=== PATIENT | female | born 1955 | race Caucasian/White ===

== ENCOUNTER 2019-01-24 08:00 | Outpatient (RCR) | payer OTHER, SELFPAY ==
--- NOTE | 2018-12-03 15:50 | HP.PTEVAL_ITS ---
Patient's Visit Information JUNIOR GRIER is a 63 year old F referred to Physical Therapy by JUAN J HOLDER with a diagnosis of L hip OA, s/p THA11/12. Date of Evaluation: 12/03/18 Physical Therapist: Deejay Salvador, DPT, OCS, CSCS - Visit Plan Frequency: 3x /Week Duration: 4-6 Weeks Plan: 3x/week for 3-6 weeks... 1. Ensure L hip ROM P/AROM emphasize extensiona nd abd. 2. rollout quads and hip flexors adn HS and stretch. 3. Strengthen L hip progression. gait training to cane and then no AD>. 4. General ex via HEP at end. 4. Ice as needed. - Subjective Findings: 11/12/18 had hip replacement L and willhave r one done in 3 months. Surgery was anterior approach. This is the best lainey wlaked in 3 years. Overall pain level 1/10 lately. Yesterday it hurt 4/10. Pain is laterally when present. Comfortable at rest. Sleeps not well but did last night as she took pain pill.Using wh walker most of time but has cane shich she has recently started. WBAT L. 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 Now will twiddle thumbs, hobbies include working on crossword puzzles and jiogsaw puzzles. Exercise none when healthy. HEP for hip none. Basic ADLs are getting done with chair in tub and extended toilet seat. Steps at home in garage without railing and did it today. USed walker for a year and a half. - Pain L hip pain Pain Intensity (Out of 10): 0 Pain Intensity Range: 0, 4 - Objective Gait is slow with wh walker adn very little extension in either hip at end stance. Trasnfers require UE form chair and supine. Without AD is able to walk but has B trenelenberg and slow, SBA. Incision is dry and healing well, mild scar tissue palpable at anterior incision, no signs of excessive redness , heat or swelling. Hip ROM is AROM: abd 5 L and 12 R, ext 0 B and uncomfortable stretching and teorio L. flexion is 90 L and 100 R. Knees are 0-115 B, ankles WFL. strength R hip flexion 4 adn L 3+, abd 3+ l and 4 R, ext 3 B , knees ext 3+ L and 4 R, flexion 4- B. ankles are 4+ B. Sensation EL WNL to gross light touch. reflexes 2/3 in patella and achilles. Hunched over with ambulation - Goals Goal 1:: Sleep without waking due to pain Goal Time Frame: 2-4 Weeks Goal 2:: Walk community without AD I Goal Time Frame: 2-4 Weeks Goal 3:: Steps reciprocal without rail Goal Time Frame: 4-6 Weeks Goal 4:: Pt I in appropriate HEP for general ex Goal Time Frame: 4-6 Weeks - Rehabilitation Potential Physical Therapy Diagnosis: s/p L GEE Rehabilitation Potential: Good - Anticipated Interventions Patient/Client Instruction: Educate patient on: Condition, Plan of Care For the Purpose of:: To decrease pain, To increase ROM, To improve muscle performance and motor function, To increase tolerance to activity/condition/position, To improve ability of physical actions for home/community/work/leisure Therapeutic Exercise to Include: Strength training, Flexibilty training, Gait and locomotor training, Passive ROM, Active ROM For the Purpose of:: To decrease pain, To improve nutrient delivery to tissue, To improve muscle performance and motor function, To improve ability of physical actions for home/community/work/leisure Manual Therapy Techniques to Include: Passive ROM, Soft tissue mobilization For the Purpose of:: To decrease pain, To increase ROM Cryotherapy (ice pack, ice massage): Yes Thermo therapy (hot pack): Yes For the Purpose of:: To decrease pain Thank you for the opportunity to evaluate your patient. For Medicare and Medicare HMO plans, please review the plan of care and approve it. It will need to be FAXED BACK to us at [phone] for Medicare purposes. For Medicare only, by signing this I certify the plan of care. Please let me know if there are questions or concerns regarding this plan of care. Physician Signature: Date:
--- NOTE | 2018-12-27 13:01 | HP.PTREVAL ---
JUAN J HOLDER, It has been my pleasure to treat JUNIOR GRIER over the last 10 visits for L hip OA, s/p THA3/19. Please see the progress note below for an update on the physical therapy plan of care! Subjective: Started preop process for R hip. L hip 1/10 pain at most. Doing well. Cane much of time. Reverts to walker if pain increases or tired. Sleep is hard as neither leg will relax. Sleeps 2 hours and then wakes up. Steps at home B with cane. Doing dishes but man doing everything else. Dresses self. Did laundry adn made bed today. Objective/Function: Walks with R trendelenberg, slow with wide JARRETT. R antalgia. FGA tolerable today and below normal on score. Steps prefer L but can do either with rail. Admittedly noncompliant with HEP. AROM L hip to 40 degrees flexion and passively to 100, abd to 24. Strength L hip 4- abd and ext adn 4 flexion and 4+ adduction. Plan Plan: 3x/week for 3-4 weeks to strengthen adn improve gait leading up to other hip surgery. Focus on gait with narrow JARRETT and speed. Goals Goal 1:: Sleep without waking due to pain Goal Time Frame: 2-4 Weeks Goal Progress: Progressing Goal 2:: Walk community without AD I Goal Time Frame: 2-4 Weeks Goal Progress: Progressing Goal 3:: Steps reciprocal without rail Goal Time Frame: 4-6 Weeks Goal 4:: Pt I in appropriate HEP for general ex Goal Time Frame: 4-6 Weeks Goal Progress: Non compliant. Anticipated Interventions Patient/Client Instruction: Educate patient on: Condition, Plan of Care For the Purpose of:: To decrease pain, To increase ROM, To improve muscle performance and motor function, To increase tolerance to activity/condition/position, To improve ability of physical actions for home/community/work/leisure Therapeutic Exercise to Include: Strength training, Flexibilty training, Gait and locomotor training, Passive ROM, Active ROM For the Purpose of:: To decrease pain, To improve nutrient delivery to tissue, To improve muscle performance and motor function, To improve ability of physical actions for home/community/work/leisure Manual Therapy Techniques to Include: Passive ROM, Soft tissue mobilization For the Purpose of:: To decrease pain, To increase ROM Cryotherapy (ice pack, ice massage): Yes Thermo therapy (hot pack): Yes For the Purpose of:: To decrease pain Please do not hesitate to contact me at [phone] by phone or if you have questions or concerns regarding this new plan of care! Sincerely, Deejay Salvador, DPT, OCS, CSCS
--- NOTE | 2019-01-03 10:00 | HP.PTREVAL_ITS ---
JUAN J HOLDER, It has been my pleasure to treat JUNIOR GRIER over the last 13 visits for L hip OA, s/p THA/. Please see the progress note below for an update on the physical therapy plan of care! Subjective: Going the right way. Pain in R is 3/10 , L hip is not painful. R one next month replacing. Getting around better, using cane out and about and walker at home. Activities are pretty normal. Doing more house hold chores, does laundry without a problem. Walks steps but not confident. Kniws the right hip is the big problem now. Wants more therapy to work on strength in prep for next months surgery. Needs more confidence with vaccuming at home. Basic ADLs are OK. Objective/Function: R hip limiting more than L with gait. R antalgia and slight trendelenberg. avoids L hip extension due to decreased stance time on L. Steps can do either but R is painful, needs railing B. Walks better with cane, hes itant withotu AD adn slower. FGA low for age but poor confidence in R hip. L hip extension limited to neutral and flexion to 100 degrees. strength L hip 4/5 abd and ext adn flexion, R hip weaker due to pain. Plan Plan: Like to cotalfanue 3x/week for 4 weeks to work on L hip extension, giat and strength as I think she will recover quicker after R GEE if she is stronger. Progress to gym machines, gait and L anterior hip stretching. Call after approval received. Goals approp and fair prognosis Goals Goal 1:: Sleep without waking due to pain Goal Time Frame: 2-4 Weeks Goal Progress: R hip keeps up Goal 2:: Walk community without AD I Goal Time Frame: 2-4 Weeks Goal Progress: cane, improving, approp Goal 3:: Steps reciprocal without rail Goal Time Frame: 4-6 Weeks Goal Progress: needs rail, approp with L Goal 4:: Pt I in appropriate HEP for general ex Goal Time Frame: 4-6 Weeks Goal Progress: sink exercises. Goal 5:: FGA to limit fall risk. Goal Time Frame: 2-4 Weeks Goal Progress: NEW GOAL Anticipated Interventions Patient/Client Instruction: Educate patient on: Condition, Plan of Care For the Purpose of:: To decrease pain, To increase ROM, To improve muscle performance and motor function, To increase tolerance to activity/condition/position, To improve ability of physical actions for home/community/work/leisure Therapeutic Exercise to Include: Strength training, Flexibilty training, Gait and locomotor training, Passive ROM, Active ROM For the Purpose of:: To decrease pain, To improve nutrient delivery to tissue, To improve muscle performance and motor function, To improve ability of physical actions for home/community/work/leisure Manual Therapy Techniques to Include: Passive ROM, Soft tissue mobilization For the Purpose of:: To decrease pain, To increase ROM Cryotherapy (ice pack, ice massage): Yes Thermo therapy (hot pack): Yes For the Purpose of:: To decrease pain Please do not hesitate to contact me at [phone] by phone or if you have questions or concerns regarding this new plan of care! Sincerely, Deejay Salvador, DPT, OCS, CSCS
--- NOTE | 2019-01-24 08:34 | HP.PTDCSUM ---
HP - PT D/C Summary It has been my pleasure to treat JUNIOR GRIER under orders from JUAN J HOLDER, for the diagnosis of L hip OA, s/p THA11/12 for a total of 19 visit(s). Discharge Date: 01/24/19 Please see the following information for a summary of their discharge status. - Subjective Subjective: Stiff first thing in am. R hip 2/10. L hip not hurting. L hip can sometimes hurt at night to 4/10. Both hips hurt at night. Sleeps an hour at a time. Activities at home are normal with L hip but activities very limited with R hip pain. Cannot pick things up off floor due to R hip. Uses walker to reach to floor. Using cane all the time due to R hip pain. - Pain L hip pain Pain Intensity (Out of 10): 0 Right Hip Pain Intensity (Out of 10): 2 - Overall Improvement % Improvement: 80 - Objective Objective/Function: Ambulates with cane mod I. R antalgia. Without cane is safe but worse R antalgia and R trendelenberg. steps are with L only with rail and cane. L hip ROM 45 ext rotation 10 ext, 100 flexion and 15 IR. R very limited at 5 IR, 30 ext rotation, 80 flexion and -5 extension(pain). Strength L hip 4-/5 abd and ext and 4/5 flexiona dn knee ext/flex. L hip doing well, R hip is holding her back. She sees doctor today and is hoping to scheudle R hip GEE. - Goals Goal 1:: Sleep without waking due to pain Goal Progress: Not Progressing Goal 2:: Walk community without AD I Goal Progress: R hip limiting Goal 3:: Steps reciprocal without rail Goal Progress: needs rail, R hip Goal 4:: Pt I in appropriate HEP for general ex Goal Progress: Goal Met Goal 5:: FGA to limit fall risk. Goal Progress: Progressing - Plan Plan: D/C - D/C Information Discharge Comments: Pt doing well with L hip. R hip is limiting factor with poor ROM and very painful. Will see surgeon today for f/u. If there are questions or concerns regarding this patient's physical therapy, please feel free to call me at [phone]. Thank you for the referral of this patient. Sincerely, Deejay Salvador, DPT, OCS, CSCS
== END 2019-01-24 19:00 | disposition home or self-care (01) ==
LOC: PT 08:00
DX: M16.0 Bilateral primary osteoarthritis of hip (principal); Z96.642 Presence of left artificial hip joint
CPT/HCPCS: 97110; 97140; 97162; 97530

== ENCOUNTER 2020-12-14 07:49 | Day surgery (SDC) | payer OTHER, SELFPAY ==
[2020-11-29 13:18] VITALS: BMI 44.4
[2020-12-14] VITALS (7 sets, daily range): BP systolic 124–137; BP diastolic 64–76; PULSE 58–69; RESP 18; TEMP 36.2–36.3; O2SAT 95–98; BMI 43.7
--- NOTE | 2020-12-14 07:11 | HP_ITS ---
Intake Vital Signs 11/29/20 Height 5 ft 1 in 11/29/20 Weight: 235 lb 11/29/20 BMI 44.4 11/29/20 BP 140/76 H 11/29/20 Blood Pressure Location Lt brachial 11/29/20 Position Sitting 11/29/20 Respiration 18 Intake Visit Reasons: CSCOPE Chief Complaint: c-scope Data Integration Developer Required: No Is patient in pain?: No Allergies codeine Allergy (Mild, Verified 11/29/20 13:23) PT UNSURE OF REACTION doxycycline Allergy (Mild, Verified 11/29/20 13:23) PT UNSURE OF REACTION etodolac Allergy (Mild, Verified 11/29/20 13:23) PT UNSURE OF REACTION fluvastatin Allergy (Mild, Verified 11/29/20 13:23) PT UNSURE OF REACTION niacin Allergy (Mild, Verified 11/29/20 13:23) PT UNSURE OF REACTION pollen extracts Allergy (Mild, Verified 11/29/20 13:23) PT UNSURE OF REACTION pravastatin Allergy (Mild, Verified 11/29/20 13:23) PT UNSURE OF REACTION ragweed pollen Allergy (Mild, Verified 11/29/20 13:23) PT UNSURE OF REACTION rosuvastatin Allergy (Mild, Verified 11/29/20 13:23) PT UNSURE OF REACTION Sulfa (Sulfonamide Antibiotics) Allergy (Mild, Verified 11/29/20 13:23) PT UNSURE OF REACTION wool Allergy (Mild, Verified 11/29/20 13:23) PT UNSURE OF REACTION Medications acetaminophen 325 mg capsule 325 mg PO ONCE PRN 11/29/20 [History Confirmed 11/29/20] atenolol 25 mg tablet 25 mg PO DAILY 11/29/20 [History Confirmed 11/29/20] calcium carbonate 300 mg (750 mg) chewable tablet 300 mg PO BID 11/29/20 [History Confirmed 11/29/20] cetirizine 10 mg capsule 10 mg PO DAILY PRN 11/29/20 [History Confirmed 11/29/20] ezetimibe 10 mg tablet 10 mg PO DAILY 11/29/20 [History Confirmed 11/29/20] fluticasone propionate 50 mcg/actuation nasal spray,suspension 1 spray INTRANASAL DAILY 11/29/20 [History Confirmed 11/29/20] levothyroxine 50 mcg capsule 50 mcg PO DAILY 11/29/20 [History Confirmed 11/29/20] multivitamin 1 tablet PO DAILY 11/29/20 [History Confirmed 11/29/20] turmeric root extract 500 mg capsule 500 mg PO DAILY 11/29/20 [History Confirmed 11/29/20] [facility] Medical History (Updated 11/29/20 @ 14:[address] David Hillman MD) Environmental allergies (Acute) High cholesterol (Acute) Hypothyroid (Acute) HTN (hypertension) (Chronic) Surgical History (Updated 11/29/20 @ 13:17 by Daylin Liu) History of carpal tunnel surgery of left wrist (Acute) S/P bilateral hip replacements (Acute) S/P hysterectomy (Acute) Family History (Updated 11/29/20 @ 13:17 by Daylin Liu) Father Cancer lung Social History (Updated 11/29/20 @ 14:[address] David Hillman MD) Smoking Status: Never smoker alcohol intake: former HPI HPI HPI: JUNIOR GRIER, is a 65 F who presents to the office today for HPI HPI Surgical H&P: Yes HPI: JUNIOR GRIER, is a 65 F who presents to the office today for colonoscopy. The patient does not have any blood in her stool or abdominal pain. Her last colonoscopy was in 2004. She did not have any polyps. She has no family history of colon cancer. ROS General General: No weight change or fatigue Cardio Cardiovascular: No murmur, pacemaker, heart disease, atrial fibrillation, high blood pressure, heart attack, heart stent, palpitations, shortness of breat with exertion or chest pain Psych Psychiatric: No depression or anxiety Resp Respiratory: No shortness of breath, No sleep apnea, No cough, No COPD, No asthma, No emphysema, No wheezing Gastro Gastrointestinal: No abdominal pain, No nausea or vomiting, No diarrhea, No constipation, No blood in stool, No acid reflux, No hemorrhoids, No ulcers, No gallbladder problem, No black,tarry stools Yordy Hematologic: No blood thinners Exam Const General: cooperative Orientation: alert, oriented x3 Resp Effort & Inspection: normal respiratory effort Auscultation: clear to auscultation bilaterally Cardio Rate: regular rate Rhythm: regular rhythm Heart Sounds: no murmurs GI Inspection: non-distended Palpation: soft, nontender Assessment & Plan Problems 1. Encounter for screening for malignant neoplasm of colon Z12.11 Plan The patient is overdue for screening colonoscopy. I recommend her having one. I explained endoscopy in detail to the patient. I explained the risks including but not limited to stroke or heart attack with anesthesia, perforation of the GI tract, bleeding, infection. I explained that any of these could necessitate further emergency surgery. The patient understands and all questions were answered sufficiently. The patient wishes to proceed with procedure. David Hillman MD Pager: [facility] [address] [place] [address] [address] [place] [address] Office: Orders Orders: Colonoscopy Today Z12.11 Coding Level of Care Code No Charge Diagnoses Encounter for screening for malignant neoplasm of colon Z12.11 I have re-examined the patient. There are no clinical changes since date of exam.
[2020-12-14] MEDS: Lactated Ringers 1,000 ML 100 ML IV (08:46)
--- NOTE | 2020-12-14 09:33 | OP.CCLET_ITS ---
12/14/2020 [facility] Re : Colonoscopy procedure for Josselyn Pastor [facility] This procedure was performed on Monday, December 14, 2020. My impressions and recommendations are as follows: Impressions : - The entire examined colon is normal on direct and retroflexion views. - No specimens collected. Recommendations : - Discharge patient to home. - Resume previous diet. - Continue present medications. - Repeat colonoscopy in 10 years for screening purposes. My findings are described in the full procedure note, which is enclosed. If I can be of further assistance, please feel free to contact me at Doctor phone number(s): , Work: . Sincerely, David Hillman MD 12/14/2020 9:33:06 AM This report has been signed electronically.
--- NOTE | 2020-12-14 09:33 | OP.COLON_ITS ---
Patient Name: Josselyn Pastor Procedure Date: 12/14/2020 9:05 AM Date of : 1955 Age: 65 Procedure: Colonoscopy Indications: Screening for colorectal malignant neoplasm Providers: David Hillman MD Referring MD: David Hillman MD Medicines: Monitored Anesthesia Care Patient Profile: This is a 65 year old female. Refer to note in patient chart for documentation of history and physical. Last Colonoscopy: more than 10 years ago. Complications: No immediate complications. Procedure: Pre-Anesthesia Assessment: - Prior to the procedure, a History and Physical was performed, and patient medications and allergies were reviewed. The patient's tolerance of previous anesthesia was also reviewed. The risks and benefits of the procedure and the sedation options and risks were discussed with the patient. All questions were answered, and informed consent was obtained. Prior Anticoagulants: The patient has taken no previous anticoagulant or antiplatelet agents. After reviewing the risks and benefits, the patient was deemed in satisfactory condition to undergo the procedure. After I obtained informed consent, the scope was passed under direct vision. Throughout the procedure, the patient's blood pressure, pulse, and oxygen saturations were monitored continuously. The adult colonoscope was introduced through the anus and advanced to the cecum, identified by appendiceal orifice and ileocecal valve. The colonoscopy was performed without difficulty. The patient tolerated the procedure well. The quality of the bowel preparation was good. Scope In: Scope Withdrawal Time 0 hours 6 minutes 13 seconds Scope Out: 9:29:00 AM Findings: The entire examined colon appeared normal on direct and retroflexion views. Impression: - The entire examined colon is normal on direct and retroflexion views. - No specimens collected. Recommendation: - Discharge patient to home. - Resume previous diet. - Continue present medications. - Repeat colonoscopy in 10 years for screening purposes. Procedure Code(s): --- Professional --- 77580, Colonoscopy, flexible; diagnostic, including collection of specimen(s) by brushing or washing, when performed (separate procedure) Diagnosis Code(s): --- Professional --- Z12.11, Encounter for screening for malignant neoplasm of colon CPT copyright 2017 [employer]. All rights reserved. The codes documented in this report are preliminary and upon orthopedic coder review may be revised to meet current compliance requirements. David Hillman MD 12/14/2020 9:33:06 AM This report has been signed electronically. Number of Addenda: 0 Note Initiated On: 12/14/2020 9:05 AM
== END 2020-12-14 10:18 | disposition home or self-care (01) ==
LOC: EN 07:50 → AC 07:50
PROVIDERS: Referring Provider Surgery; Visit Provider Surgery
PROC: 0DJD8ZZ Inspection of Lower Intestinal Tract, Via Natural or Artificial Opening Endoscopic (ICD-10-PCS; CPT 45378; principal; 2020-12-14 08:55)
DX: Z12.11 Encounter for screening for malignant neoplasm of colon (principal); I10 Essential (primary) hypertension; E78.00 Pure hypercholesterolemia, unspecified; E03.9 Hypothyroidism, unspecified; J30.2 Other seasonal allergic rhinitis; Z20.822 Contact with and (suspected) exposure to COVID-19; Z79.899 Other long term (current) drug therapy
CPT/HCPCS: 45378; 87426; C9803; J7120; J2405

== ENCOUNTER → 2021-06-02 10:40 | Outpatient (CLI) | payer OTHER, SELFPAY ==
--- NOTE | 2021-06-02 11:04 | BD_ITS ---
STUDY: DUAL ENERGY X-RAY ABSORPTIOMETRY / DXA REASON FOR EXAM: Female, 65 years old. 733.90OsteopeniaBONE DENSITY REASON FOR EXAM TECHNIQUE: Bone Mineral Density (BMD) measurements of lumbar spine and bilateral forearms were obtained. COMPARISON: Comparison is made with prior study dated 06/28/2017. FINDINGS: Lumbar Spine (L1-L4): g/cm2 (0.912) / T-score (-1.2) / Z-score (0.5) Findings are suggestive of osteopenia with a low fracture risk. Right Forearm: g/cm2 (0.523) / T-score (-1.0) / Z-score (0.5) Left Forearm: g/cm2 (0.530) / T-score (-0.9) / Z-score (0.6) The T-Scores on the most recent prior examination were: Lumbar Spine (L1-L4): There has been worsening of bone density since the previous examination. BD/Dexa Bone Density Study IMPRESSION: The patient is considered osteopenic as outlined below according to World [employer] Organization (WHO) criteria with a low fracture risk. There has been worsening of bone density since the previous examination. Reference Information: The T-score is the number of standard deviations above or below the standard which is normal for young adults at their peak bone mineral density. The World Health Organization (WHO) interprets the T-scores as follows: Above -1 Normal bone density Between -1 and -2.5 Osteopenia Equal to / or below -2.5 Osteoporosis As a practical clinical guideline, osteopenia may be graded as follows: Mild -1 through -1.5 Moderate -1.6 through -2.0 Severe -2.1 through -2.4 The Z-score is the number of standard deviations above or below age-matched controls. A Z-score of less than -1.5 would be considered abnormal. References: 1. NIH Osteoporosis and Related Bone Diseases www osteo.org 2. International Society for Clinical Densitometry www iscd.org 3. National Osteoporosis Foundation www nof.org Electronically Signed: Faizan Wallace MD at 11:10 EDT , Service support ,
== END ==
DX: M85.80 Other specified disorders of bone density and structure, unspecified site (principal)
CPT/HCPCS: 77080

== ENCOUNTER → 2021-06-07 13:09 | Outpatient (CLI) | payer OTHER, SELFPAY ==
--- NOTE | 2021-06-07 13:12 | BI_ITS ---
MAMMOGRAPHY - BILATERAL SCREENING REASON FOR EXAM: Female, 65 years old. Routine annual screening examination. PERTINENT HISTORY: Non-contributory. Remote right needle biopsy. TECHNIQUE: Digital bilateral breast kimi (3D mammographic acquisition) in the CC and MLO projections. 2-D mediolateral oblique (MLO) and craniocaudad (CC) views of both breasts were obtained. CAD: Full Field Digital Mammography with Computer Added Detection was performed. COMPARISON: Comparison is made with prior outside examination of 07/03/2019. FINDINGS: Breast Composition: There are scattered areas of fibroglandular density. There are no dominant masses or suspicious calcifications. No other significant abnormalities are identified. There has been no significant change since the prior study. BI/SCRN MAMM (CAD)W/KIMI BILAT IMPRESSION: Stable bilateral screening mammogram. Yearly follow-up mammogram recommended. (A) ASSESSMENT CATEGORY: BIRADS Category 1: Negative. A letter regarding these results will be sent to the patient by the facility within 30 days. Approximately 10% of breast cancers are not detected by mammography. A normal mammogram should not delay biopsy of a clinically suspicious abnormality. [id number] Electronically Signed: Faizan Wallace MD at 14:04 EDT , Service support ,
== END ==
DX: Z12.31 Encounter for screening mammogram for malignant neoplasm of breast (principal)
CPT/HCPCS: 77063; 77067

== ENCOUNTER → 2023-02-07 | Outpatient (CLI) | payer OTHER, SELFPAY ==
--- NOTE | 2023-02-07 10:14 | BI_ITS ---
MAMMOGRAPHY - BILATERAL SCREENING REASON FOR EXAM: Female, 67 years old. Routine annual screening examination. PERTINENT HISTORY: Non-contributory. Remote right needle breast biopsy. TECHNIQUE: Digital bilateral breast kimi (3D mammographic acquisition) in the CC and MLO projections. 2-D mediolateral oblique (MLO) and craniocaudad (CC) views of both breasts were obtained. CAD: Full Field Digital Mammography with Computer Added Detection was performed. COMPARISON: Comparison is made with prior study dated June 07, 2021. FINDINGS: Breast Composition: There are scattered areas of fibroglandular density. There are no dominant masses or suspicious calcifications. No other significant abnormalities are identified. There has been no significant change since the prior study. BI/SCRN MAMM (CAD)W/KIMI BILAT IMPRESSION: Stable bilateral screening mammogram. Yearly follow-up mammogram recommended. (A) ASSESSMENT CATEGORY: BIRADS Category 1: Negative. A letter regarding these results will be sent to the patient by the facility within 30 days. Approximately 10% of breast cancers are not detected by mammography. A normal mammogram should not delay biopsy of a clinically suspicious abnormality. [id number] Electronically Signed: Faizan Wallace MD at 11:18 EDT ,
== END | disposition home or self-care (01) ==
PROVIDERS: PCP Family Medicine; Referring Provider Family Medicine; Visit Provider Family Medicine
DX: Z12.31 Encounter for screening mammogram for malignant neoplasm of breast (principal)
CPT/HCPCS: 77063; 77067